=== PATIENT | female | born 1970 | race Native Hawaiian/Other Pacific Islander ===

== ENCOUNTER 2017-07-09 09:25 | Outpatient (CLI) | payer BC | END 2017-07-09 19:21 | disposition home or self-care (01) | LOC: US 09:25 → MAMMO 09:30 → US 19:21 | DX: R92.8 Other abnormal and inconclusive findings on diagnostic imaging of breast (principal) ==

== ENCOUNTER 2019-12-21 07:34 | Day surgery (SDC) | payer BC | END 2019-12-21 10:13 | disposition home or self-care (01) | LOC: OR 07:34 | PROC: 3E0R33Z Introduction of Anti-inflammatory into Spinal Canal, Percutaneous Approach (ICD-10-PCS; principal; 2019-12-21) | PROC: B01BYZZ Fluoroscopy of Spinal Cord using Other Contrast (ICD-10-PCS; 2019-12-21) | DX: M50.123 Cervical disc disorder at C6-C7 level with radiculopathy (principal) | CPT/HCPCS: J1020 ==

== ENCOUNTER 2020-02-08 08:15 | Day surgery (SDC) | payer BC | END 2020-02-08 09:35 | disposition home or self-care (01) | LOC: OR 08:15 | PROC: 3E0R33Z Introduction of Anti-inflammatory into Spinal Canal, Percutaneous Approach (ICD-10-PCS; principal; 2020-02-08) | PROC: B01BYZZ Fluoroscopy of Spinal Cord using Other Contrast (ICD-10-PCS; 2020-02-08) | DX: M51.16 Intervertebral disc disorders with radiculopathy, lumbar region (principal) | CPT/HCPCS: J1020 ==

== ENCOUNTER 2020-03-07 07:26 | Day surgery (SDC) | payer BC, OTHER | END 2020-03-07 08:35 | disposition home or self-care (01) | LOC: OR 07:26 | PROC: 3E0R33Z Introduction of Anti-inflammatory into Spinal Canal, Percutaneous Approach (ICD-10-PCS; principal; 2020-03-07) | PROC: B01BYZZ Fluoroscopy of Spinal Cord using Other Contrast (ICD-10-PCS; 2020-03-07) | DX: M51.16 Intervertebral disc disorders with radiculopathy, lumbar region (principal) | CPT/HCPCS: J1020 ==

== ENCOUNTER 2020-08-07 14:50 | Outpatient (CLI) | payer OTHER | END 2020-08-07 22:19 | disposition home or self-care (01) | LOC: RESP 14:50 | PROVIDERS: ATTEND Specialist | DX: Z01.810 Encounter for preprocedural cardiovascular examination (principal); R07.89 Other chest pain; Z91.89 Other specified personal risk factors, not elsewhere classified ==

== ENCOUNTER 2020-08-08 10:24 | Outpatient (CLI) | payer OTHER | END 2020-08-08 20:43 | disposition home or self-care (01) | LOC: RESP 10:24 | PROVIDERS: ATTEND Specialist | DX: Z01.810 Encounter for preprocedural cardiovascular examination (principal); R07.89 Other chest pain; Z91.89 Other specified personal risk factors, not elsewhere classified ==

== ENCOUNTER 2020-08-23 08:56 | Outpatient (CLI) | payer OTHER | END 2020-08-23 22:39 | disposition home or self-care (01) | LOC: RAD 08:56 | PROVIDERS: ATTEND Physician Assistant | DX: E66.01 Morbid (severe) obesity due to excess calories (principal); K21.9 Gastro-esophageal reflux disease without esophagitis ==